=== PATIENT | male | born 1955 | race Caucasian/White ===

== ENCOUNTER → 2016-06-07 | Outpatient (CLI) | payer BC ==
[~2016-06-07] MED LIST: ASPIR-LOW81 MG PO; CARDENE 30MG CA30 M1 PO; GLUCOSAMINE PO; MULTIPLE VITAMI1 TAB PO; MVI; VITAMIN B12 PO
== END ==
LOC: COL.RAD 11:32
DX: N50.3 Cyst of epididymis (principal); I86.1 Scrotal varices; N50.82 Scrotal pain

== ENCOUNTER 2020-04-02 16:33 | Emergency (ER) | payer BC ==
[~2020-04-02] VITALS: Ht 180.3 cm; Wt 94.1 kg
[2020-04-02 16:35] VITALS: TEMP 98
[2020-04-02 16:49] LABS: BASO % 0.3 % (0.0-2.0); EOS # 0.2 (0.0-0.7); EOS % 3.2 % (0-4.0); GRAN # 4.2 (1.4-6.5); GRAN % 61.8 % (42.2-75.2); HEMATOCRIT 44.8 % (42.0-52.0); HEMOGLOBIN 15.9 g/dl (13.5-18.0); LYMPH # 1.6 (1.2-3.4); LYMPH % 23.6 % (20.0-51.0); MEAN CELL VOLUME 86 fl (80.0-100.0); MEAN CORPUSCULAR HEMOGLOBIN 30 pg (27.0-31.0); MEAN CORPUSCULAR HGB CONC 36 g/dl (33.0-37.0); MEAN PLATELET VOLUME 10.3 fl (7.4-10.4); MONO # 0.7 (0.1-0.6); MONO % 10.8 % (1.7-9.3); PLATELET COUNT 186 K/mm3 (130-400); RED BLOOD COUNT 5.23 M/mm3 (4.20-5.60); REDCELL DISTRIBUTION WIDTH-CV 13.2 % (11.5-14.5)
[2020-04-02 16:56] LABS: PROTHROMBIN TIME 11.5 SECONDS (9.7-12.8)
[2020-04-02 16:58] LABS: PARTIAL THROMBOPLASTIN TIME 27.4 SECONDS (26.0-37.0)
[2020-04-02 17:06] LABS: ALANINE AMINOTRANSFERASE 25 U/L (4-49); ALKALINE PHOSPHATASE 84 U/L (50-136); ANION GAP 8 mmol/L (7-16); AST,SGOT 34 U/L (15-37); BILIRUBIN,TOTAL 0.9 mg/dL (0.0-1.0); BLOOD UREA NITROGEN 14 mg/dL (9-20); CALCIUM 9.3 mg/dL (8.4-10.2); CARBON DIOXIDE 23 mmol/L (22-30); CHLORIDE 107 mmol/L (98-107); CREATININE, serum 1.07 (0.66-1.25); GLUCOSE 90 mg/dL (74-106); POTASSIUM 3.9 mmol/L (3.4-5.0); SODIUM 138 mmol/L (137-145); TOTAL PROTEIN 6.8 gm/dL (6.4-8.2)
[2020-04-02 17:07] LABS: ALCOHOL(ethanol),MEDICAL < 10 mg/dL
[2020-04-02 17:18] LABS: TROPONIN-I < 0.012 ng/mL (0.000-0.035)
[2020-04-02 18:00] VITALS: BP 132/96; PULSE 71
== END 2020-04-02 18:15 | disposition home or self-care (01) ==
LOC: COL.ER 16:33
PROVIDERS: Emergency Medicine
DX: R53.1 Weakness (principal); R27.0 Ataxia, unspecified; Z86.73 Personal history of transient ischemic attack (TIA), and cerebral infarction without residual deficits; Z88.0 Allergy status to penicillin; Z79.82 Long term (current) use of aspirin
CPT/HCPCS: Q9967

== ENCOUNTER → 2024-01-17 | Outpatient (CLI) | payer MEDICARE, BC | LOC: COL.RAD 10:12 | DX: R10.11 Right upper quadrant pain (principal) ==